=== PATIENT | female | born 1995 | race Caucasian/White ===

== ENCOUNTER 2024-06-04 12:01 | Emergency (ER) | payer MEDICAID, OTHER ==
[~2024-06-04] VITALS: Ht 165.1 cm; Wt 91.0 kg
[2024-06-04 12:05] VITALS: PULSE 112; O2SAT 98
[2024-06-04 12:06] VITALS: BP 131/90; RESP 18; TEMP 103.4; O2SAT 100
[2024-06-04] MEDS ORDERED: ACETAMINOPHEN 325MG TABLET PO ONE (12:30)
[2024-06-04] MEDS ORDERED: DEXAMETHASONE 4MG/ML 1ML VIAL IV ONE (12:30)
[2024-06-04] MEDS: DEXAMETHASONE 10 MG/ML VIAL PO ONE (15:10)
[2024-06-04] MEDS: ACETAMINOPHEN 500MG TABLET PO NR (15:11)
[2024-06-04] MEDS: DEXAMETHASONE 4MG TABLET PO NR (15:11)
[2024-06-04] MEDS ORDERED: AMOX-494 MT (16:22)
== END 2024-06-04 17:10 | disposition home or self-care (01) ==
LOC: ER 12:01
DX: R50.9 Fever, unspecified (principal); J02.9 Acute pharyngitis, unspecified; Z98.890 Other specified postprocedural states; Z20.822 Contact with and (suspected) exposure to COVID-19
CPT/HCPCS: 99283; 87426; 87430; 87070; 87804 ×2; J1100; J8540